=== PATIENT | male | born 1975 | race Caucasian/White ===

== ENCOUNTER → 2020-02-10 09:16 | Outpatient (BNVA) | payer BC, SELFPAY | PROVIDERS: Family Provider Family Medicine; Visit Provider Family Medicine | DX: J18.9 Pneumonia, unspecified organism (principal) | CPT/HCPCS: 71046; 80053; 85025; 85651 ==

== ENCOUNTER 2020-04-11 06:00 | Outpatient (RCR) | payer BC, SELFPAY | END 2020-04-19 23:59 | disposition home or self-care (01) | LOC: APT 06:00 | PROVIDERS: PCP Family Medicine; Visit Provider Family Medicine | DX: M62.9 Disorder of muscle, unspecified (principal) | CPT/HCPCS: 97110; 97140; 97161 ==

== ENCOUNTER 2020-04-20 06:00 | Outpatient (RCR) | payer BC, SELFPAY | END 2020-05-20 23:59 | disposition home or self-care (01) | LOC: APT 06:00 | PROVIDERS: PCP Family Medicine; Visit Provider Family Medicine | DX: M62.9 Disorder of muscle, unspecified (principal) | CPT/HCPCS: 97110; 97140 ==

== ENCOUNTER 2020-05-21 06:00 | Outpatient (RCR) | payer BC, SELFPAY | END 2020-06-17 23:59 | disposition home or self-care (01) | LOC: APT 06:00 | PROVIDERS: PCP Family Medicine; Visit Provider Family Medicine | DX: M62.9 Disorder of muscle, unspecified (principal) | CPT/HCPCS: 97110; 97140 ==

== ENCOUNTER 2020-06-18 06:00 | Outpatient (RCR) | payer BC, SELFPAY | END 2020-07-18 23:59 | disposition home or self-care (01) | LOC: APT 06:00 | PROVIDERS: PCP Family Medicine; Visit Provider Family Medicine | DX: M62.9 Disorder of muscle, unspecified (principal) | CPT/HCPCS: 97110 ==

== ENCOUNTER 2020-10-26 13:09 | Outpatient (CLI) | payer BC, SELFPAY ==
--- NOTE | 2020-10-26 13:14 | MR_ITS ---
WS: [id number] MRI LUMBAR SPINE NONCONTRAST TECHNIQUE: Sagittal T1, T2 and STIR imaging. Axial T1 and T2 imaging. CLINICAL INFORMATION: LUMBAR RADICULOPATHY COMPARISON: None. FINDINGS: There is a 1.2 x 1.4 x 2.9 cm lobulated T2 hyperintense lesion in the left retroperitoneum adjacent to the distal abdominal aorta. This is nonspecific and recommend further evaluation with con trast-enhanced CT abdomen pelvis. This is adjacent to the L2 vertebral body. Differential considerati ons include peripheral nerve sheath tumor such as schwannoma, dilated hemiazygos or accessory vein, o r possibly lymphocele. Tapering with slight extension posterior to the aorta along the anterior verte bral venous plexus. Normal lumbar alignment. No acute compression. No high-grade central canal stenosis. L1-L2: Normal. L2-L3: No significant disc bulging. Spinal canal and foramen are patent. Mild facet arthropathy. L3-L4: Minimal annular bulging. Slight effacement of ventral thecal sac. Mild facet arthropathy. Smal l right foraminal protrusion with mild right foraminal narrowing. Contact of the exiting right L3 ner ve root. L4-L5: Mild annular bulging with slight narrowing of the subarticular recess bilaterally. Left eccent mikal disc bulging with a tiny annular tear. Encroachment on the exiting left L4 nerve root laterally. Right foramen is patent. Mild to moderate facet arthropathy. L5-S1: No significant disc bulging. Mild facet arthropathy. Spinal canal and foramen are patent. Visualized pelvic bony structures: Normal. Paravertebral soft tissues: Normal. MR/MR lumbar spine wo con* [id number] IMPRESSION: 1. 1.2 x 1.4 x 2.9 cm lobulated T2 hyperintense lesion in the left retroperito neum adjacent to the distal abdominal aorta. This is nonspecific and recommend further evaluation with contrast-enhanced CT abdomen pelvis. 2. Mild lumbar curve. No acute compression. No high-grade central canal stenos is. 3. Small right foraminal protrusion L3-4 slightly impinges the exiting right L 3 nerve root. 4. Mild annular bulging L4-5 with slight narrowing of this subarticular reces s bilaterally and encroachment on traversing L5 nerve roots. 5. Left eccentric disc bulging L4-5 with a tiny annular fissure slightly encro aches on the exiting left L4 nerve root without significant impingement. 6. Mild to moderate facet arthropathy L3-L4 L4-L5.
--- NOTE | 2020-10-26 13:14 | MR_ITS ---
WS: [id number] MRI RIGHT HIP NONCONTRAST TECHNIQUE: Axial T1, axial T2 fat sat, coronal T1, coronal STIR, sagittal T2 fat sat, sagittal T1, an d sagittal T2 fat sat, of both hips. CLINICAL INFORMATION: HIP PAIN, RIGHT COMPARISON: None. FINDINGS: Normal bone marrow signal in both hips. Joint spaces are well preserved. No evidence of avascular nec rosis. Normal acetabulum bilaterally. Normal bone marrow signal in the visualized bony pelvis and sac rum. Normal pubic rami. No significant joint effusions. Proximal femoral shafts are normal in appeara nce. Normal perirectal soft tissues. No inguinal lymphadenopathy. Normal visualized pubic rami. Visualized sacroiliac joints are normal in appearance. Normal visualized soft tissues. MR/MR hip RT wo con* [id number] IMPRESSION: 1. Both hips are normal in appearance. Normal bone marrow signal in both femor al heads. No evidence of avascular necrosis. 2. No significant joint effusion. 3. Normal bone marrow signal in the visualized bony pelvis and sacrum. 4. No other significant findings.
== END 2020-10-26 13:10 | disposition home or self-care (01) ==
LOC: RADWPI 13:11
PROVIDERS: PCP Family Medicine; Visit Provider Orthopaedic Surgery
DX: M25.551 Pain in right hip (principal); M54.16 Radiculopathy, lumbar region; M47.816 Spondylosis without myelopathy or radiculopathy, lumbar region; M51.26 Other intervertebral disc displacement, lumbar region
CPT/HCPCS: 72148; 73721

== ENCOUNTER 2021-07-18 06:00 | Outpatient (RCR) | payer OTHER, SELFPAY | END 2021-07-18 23:59 | disposition home or self-care (01) | LOC: SPT 06:00 | PROVIDERS: PCP Family Medicine; Referring Provider Family Medicine; Visit Provider Family Medicine | DX: M54.9 Dorsalgia, unspecified (principal); M62.9 Disorder of muscle, unspecified | CPT/HCPCS: 20560; 97161 ==

== ENCOUNTER 2021-07-19 06:00 | Outpatient (RCR) | payer OTHER, SELFPAY | END 2021-08-17 23:59 | disposition home or self-care (01) | LOC: SPT 06:00 | PROVIDERS: PCP Family Medicine; Referring Provider Family Medicine; Visit Provider Family Medicine | DX: M54.9 Dorsalgia, unspecified (principal); M62.9 Disorder of muscle, unspecified | CPT/HCPCS: 20560; 97110 ==

== ENCOUNTER 2021-08-18 06:00 | Outpatient (RCR) | payer OTHER, SELFPAY | END 2021-09-17 23:59 | disposition home or self-care (01) | LOC: SPT 06:00 | PROVIDERS: PCP Family Medicine; Referring Provider Family Medicine; Visit Provider Family Medicine | DX: M54.9 Dorsalgia, unspecified (principal); M62.9 Disorder of muscle, unspecified | CPT/HCPCS: 20561 ==

== ENCOUNTER 2021-09-18 06:00 | Outpatient (RCR) | payer OTHER, SELFPAY | END 2021-10-17 23:59 | disposition home or self-care (01) | LOC: SPT 06:00 | PROVIDERS: PCP Family Medicine; Referring Provider Family Medicine; Visit Provider Family Medicine | DX: M54.9 Dorsalgia, unspecified (principal); M62.89 Other specified disorders of muscle | CPT/HCPCS: 20560 ==

== ENCOUNTER 2021-10-18 06:00 | Outpatient (RCR) | payer OTHER, SELFPAY | END 2021-11-17 23:59 | disposition home or self-care (01) | LOC: SPT 06:00 | PROVIDERS: PCP Family Medicine; Referring Provider Family Medicine; Visit Provider Family Medicine | DX: M62.9 Disorder of muscle, unspecified (principal) | CPT/HCPCS: 20560 ==

== ENCOUNTER 2021-11-18 06:00 | Outpatient (RCR) | payer OTHER, SELFPAY | END 2021-12-18 23:59 | disposition home or self-care (01) | LOC: SPT 06:00 | PROVIDERS: PCP Family Medicine; Visit Provider Family Medicine | DX: M25.511 Pain in right shoulder (principal) | CPT/HCPCS: 20561 ==

== ENCOUNTER 2022-01-07 14:04 | Outpatient (CLI) | payer OTHER, SELFPAY ==
--- NOTE | 2022-01-07 14:30 | MR_ITS ---
WS: [id number] MRI RIGHT SHOULDER HISTORY: Posterior pain with limited range of motion. Prior shoulder surgery in 2016. No interval inj ury. COMPARISON: 01/22/2017 TECHNIQUE: Multiplanar sequences of the shoulder joint are submitted. Moderate AC joint arthritis. Bone and soft tissue hypertrophy with joint space narrowing. Mild encroa chment upon the supraspinatus tendon. No significant effusion the subacromial or subdeltoid bursa. 8 x 3 mm osteophyte with mild subacromial impingement. No os acromion. Biceps tendon remains in normal position with mild increase fluid along the biceps tendon sheath. Very mild elevation of the humeral head from the glenoid. No rotator cuff tear. No rotator cuff muscl e atrophy or edema. Small osteophytes and subchondral cystic changes along the glenoid surface, media l. There is mild loss of cartilage with cortical irregularity involving the glenoid. MR/MR shoulder RT wo con* [id number] IMPRESSION: 1. Moderate AC joint arthritis with mild encroachment upon the supraspinatus t endon. 2. Mild subacromial impingement by an osteophyte measuring 8 x 3 mm. 3. Mild biceps tenosynovitis. 4. No rotator cuff tear. 5. Degenerative changes involving the glenoid with loss of cartilage and corti curry irregularity. 6. Very slight increased signal involving the anterior labrum. Signal is irreg ular. Similar to the prior study. May represent a small labral tear versus intr asubstance degeneration.
== END 2022-01-07 14:05 | disposition home or self-care (01) ==
PROVIDERS: PCP Family Medicine; Visit Provider Family Medicine
DX: M54.12 Radiculopathy, cervical region (principal); Z98.890 Other specified postprocedural states; M13.811 Other specified arthritis, right shoulder; M25.711 Osteophyte, right shoulder; M65.811 Other synovitis and tenosynovitis, right shoulder
CPT/HCPCS: 73221

== ENCOUNTER → 2022-07-25 11:06 | Outpatient (BNVA) | payer OTHER, SELFPAY | PROVIDERS: PCP Family Medicine; Visit Provider Family Medicine | DX: R07.81 Pleurodynia (principal) | CPT/HCPCS: 71046 ==

== ENCOUNTER → 2024-06-09 08:32 | Outpatient (BNVA) | payer OTHER, SELFPAY | PROVIDERS: PCP Family Medicine; Visit Provider Family Medicine | DX: Z00.00 Encounter for general adult medical examination without abnormal findings (principal); R06.09 Other forms of dyspnea; R10.9 Unspecified abdominal pain; M79.609 Pain in unspecified limb; R79.89 Other specified abnormal findings of blood chemistry; E03.9 Hypothyroidism, unspecified | CPT/HCPCS: 80053; 80061; 82040; 82607; 83036; 84270; 84403; 84443; 85025; G0103 ==

== ENCOUNTER 2024-08-03 09:16 | Outpatient (CLI) | payer OTHER, SELFPAY ==
--- NOTE | 2024-08-03 09:30 | US_ITS ---
WS: [id number] RIGHT UPPER QUADRANT ULTRASOUND HISTORY: Right lower chest/RUQ symptoms COMPARISON: None available. Liver: 17.1 cm in length. Normal size liver and echogenicity. No bile duct dilatation or mass. Portal Vein: Normal hepatopetal flow with monophasic waveform. Mild decreased velocity. Gallbladder: Normally distended gallbladder with no stones or wall thickening. CBD: 0.2 cm Pancreas: Poorly visualized. Right kidney: 11.5 cm in length. Normal size and echogenicity. No hydronephrosis or mass. Aorta and IVC: Unremarkable abdominal aorta and IVC. No ascites. US/US abdomen limited [id number] IMPRESSION: 1. Normal gallbladder. 2. Unremarkable liver. No intrahepatic duct dilatation.
== END 2024-08-03 09:17 | disposition home or self-care (01) ==
LOC: RAD 09:18
PROVIDERS: PCP Family Medicine; Visit Provider Family Medicine
DX: R06.09 Other forms of dyspnea (principal); R10.9 Unspecified abdominal pain; R93.89 Abnormal findings on diagnostic imaging of other specified body structures
CPT/HCPCS: 76705